=== PATIENT | female | born 1985 | race Caucasian/White ===

== ENCOUNTER 2017-10-08 07:57 | Emergency (ER) | payer MEDICAID ==
[~2017-10-08] VITALS: Ht 162.6 cm; Wt 60.0 kg
[2017-10-08 10:47] LABS: CHLORIDE 114 mEq/L (98-107)
[2017-10-08 10:50] LABS: BASOPHILS % 2.7 % (0.0-2.0); EOSINOPHILS % 3.1 % (0.0-5.0); HEMATOCRIT. 35.4 % (36.0-48.0); HEMOGLOBIN. 11.6 g/dL (12.0-16.0); MEAN CORPUSCULAR HEMOGLOBIN 26.1 pg (28.0-32.0); MEAN CORPUSCULAR VOLUME 79.8 fL (81.0-99.0); MEAN PLATELET VOLUME 7.8 fl (7.4-10.4); MONOCYTES % 6.2 % (2.0-8.0); PLATELET 306 x1000/uL (130-400); RED BLOOD CELL COUNT 4.44 mill/uL (4.2-5.4); RED CELL DISTRIBUTION WIDTH 16.8 % (11.6-14.6)
[2017-10-08 11:02] LABS: ETHANOL BLOOD 304 mg/dL
[2017-10-09] MEDS ORDERED: ONDANSETRON 4MG ODT PO ONE (03:45)
[2017-10-09 08:43] LABS: CLARITY URINE CLOUDY (CLEAR); COLOR URINE YELLOW (YELLOW); KETONES URINE 3+ (NEGATIVE); LEUKOCYTE ESTERASE URINE NEGATIVE (NEGATIVE); NITRITE URINE NEGATIVE (NEGATIVE); OCCULT BLOOD URINE NEGATIVE (NEGATIVE); PROTEIN URINE NEGATIVE (NEGATIVE); SPECIFIC GRAVITY URINE 1.023 (1.005-1.030); UROBILINOGEN URINE 0.2 E.U./dL (0.2-1.0)
[2017-10-09 09:24] LABS: *BARBITURATES SCREEN URINE NEGATIVE (NEGATIVE)
[2017-10-09 09:25] LABS: *AMPHETAMINES SCREEN URINE NEGATIVE (NEGATIVE); *BENZODIAZEPINES SCREEN URINE NEGATIVE (NEGATIVE); *COCAINE SCREEN URINE NEGATIVE (NEGATIVE); METHADONE URINE SCREEN NEGATIVE (NEGATIVE); OPIATES URINE SCREEN NEGATIVE (NEGATIVE)
[2017-10-09 09:26] LABS: CANNABINOID URINE SCREEN NEGATIVE (NEGATIVE); PHENCYCLIDINE URINE SCREEN NEGATIVE (NEGATIVE)
[2017-10-09 15:14] VITALS: BP 125/87
== END 2017-10-09 15:16 | disposition home or self-care (01) ==
LOC: ER 08:07
DX: F10.129 Alcohol abuse with intoxication, unspecified (principal); Y90.8 Blood alcohol level of 240 mg/100 ml or more
CPT/HCPCS: 36415; 80053; 80305; 81003; 85025; 87086; 99284; G0482; J7030; Q0162; Z7610

== ENCOUNTER 2017-10-09 19:23 | Emergency (ER) | payer MEDICAID ==
[~2017-10-09] VITALS: Ht 177.8 cm; Wt 84.0 kg
[2017-10-09] MEDS ORDERED: SODIUM CHLORIDE 0.9% 1,000 ML IV ONE (19:49)
[2017-10-09] MEDS ORDERED: ACTIVATED CHARCOAL 50 G/240 ML TUBE PO ONE (20:00)
[2017-10-09 20:23] LABS: BASOPHILS % 0.9 % (0.0-2.0); EOSINOPHILS % 1.4 % (0.0-5.0); HEMOGLOBIN. 11.3 g/dL (12.0-16.0); LYMPHOCYTES % 33.4 % (20.0-50.0); MEAN CORPUSCULAR HEMOGLOBIN 26.1 pg (28.0-32.0); MEAN CORPUSCULAR VOLUME 78.9 fL (81.0-99.0); MEAN PLATELET VOLUME 8.1 fl (7.4-10.4); MONOCYTES % 7.8 % (2.0-8.0); NEUTROPHILS % 56.5 % (40.0-76.0); PLATELET 308 x1000/uL (130-400); RED BLOOD CELL COUNT 4.31 mill/uL (4.2-5.4); RED CELL DISTRIBUTION WIDTH 16.8 % (11.6-14.6)
[2017-10-09 20:24] LABS: CHLORIDE 102 mEq/L (98-107)
[2017-10-09 20:29] LABS: HCG SCREEN NEGATIVE
[2017-10-09 20:53] LABS: ETHANOL BLOOD 323 mg/dL
[2017-10-09] MEDS ORDERED: POTASSIUM CHLORIDE 20MEQ TABLET SR PO ONE (21:30)
[2017-10-10] MEDS ORDERED: SODIUM CHLORIDE 0.9% 1,000 ML IV ONE (01:45)
[2017-10-10] MEDS: POTASSIUM BICARB/CIT ACID 25 MEQ TABLET.EFF PO SCH (02:59)
[2017-10-10 06:44] LABS: CLARITY URINE CLEAR (CLEAR); COLOR URINE YELLOW (YELLOW); KETONES URINE NEGATIVE (NEGATIVE); LEUKOCYTE ESTERASE URINE NEGATIVE (NEGATIVE); NITRITE URINE NEGATIVE (NEGATIVE); OCCULT BLOOD URINE NEGATIVE (NEGATIVE); PH URINE 5.5 (4.5-8.0); PROTEIN URINE NEGATIVE (NEGATIVE); UROBILINOGEN URINE 0.2 E.U./dL (0.2-1.0)
[2017-10-10 07:50] LABS: *AMPHETAMINES SCREEN URINE NEGATIVE (NEGATIVE)
[2017-10-10 07:52] LABS: *BARBITURATES SCREEN URINE NEGATIVE (NEGATIVE)
[2017-10-10 07:53] LABS: *BENZODIAZEPINES SCREEN URINE NEGATIVE (NEGATIVE)
[2017-10-10 07:54] LABS: *COCAINE SCREEN URINE NEGATIVE (NEGATIVE)
[2017-10-10 07:58] LABS: METHADONE URINE SCREEN NEGATIVE (NEGATIVE)
[2017-10-10 08:03] LABS: OPIATES URINE SCREEN NEGATIVE (NEGATIVE)
[2017-10-10 08:08] LABS: CANNABINOID URINE SCREEN NEGATIVE (NEGATIVE)
[2017-10-10 08:25] LABS: PHENCYCLIDINE URINE SCREEN NEGATIVE (NEGATIVE)
[2017-10-10 10:04] VITALS: BP 113/77
== END 2017-10-10 10:04 | disposition left against medical advice (07) ==
LOC: ER 19:37
DX: T43.022A Poisoning by tetracyclic antidepressants, intentional self-harm, initial encounter (principal); F10.229 Alcohol dependence with intoxication, unspecified; R45.851 Suicidal ideations; Y92.89 Other specified places as the place of occurrence of the external cause; Y90.8 Blood alcohol level of 240 mg/100 ml or more; Z79.899 Other long term (current) drug therapy
CPT/HCPCS: 36415; 80053; 80305; 80307; 80329; 81003; 82962; 84703; 85025; 93005; 96360; 96361; 99285; G0482; J7030; J7040; Z7610

== ENCOUNTER 2023-07-25 22:15 | Emergency (ER) | payer BC, MEDICAID ==
[~2023-07-25] VITALS: Ht 175.3 cm; Wt 77.0 kg
[2023-07-25 22:20] VITALS: TEMP 98.1; O2SAT 98
[2023-07-26 00:22] LABS: HEMATOCRIT. 32.2 % (36.0-48.0); HEMOGLOBIN. 9.5 g/dL (12.0-16.0); MEAN CORPUSCULAR HEMOGLOBIN 21.3 pg (28.0-32.0); MEAN CORPUSCULAR HGB CONC 29.4 g/dL (31.0-37.0); MEAN CORPUSCULAR VOLUME 72.5 fL (81.0-99.0); MEAN PLATELET VOLUME 8.6 fl (7.4-10.4); PLATELET 113 x1000/uL (130-400); RED BLOOD CELL COUNT 4.44 mill/uL (4.2-5.4); RED CELL DISTRIBUTION WIDTH 30.2 % (11.6-14.6); WHITE BLOOD COUNT 3.9 x1000/uL (4.5-11.0)
[2023-07-26 00:33] LABS: DIFFERENTIAL COMMENT 1
[2023-07-26 00:43] LABS: ALANINE AMINOTRANSFERASE 71 IU/L (10-49); ALBUMIN 3.8 g/dL (3.2-4.8); ASPARTATE AMINOTRANSFERASE 341 IU/L (<34); BILIRUBIN TOTAL 3.6 mg/dL (0.1-1.0); CALCIUM 8.1 mg/dL (8.7-10.4); CARBON DIOXIDE 25 mEq/L (21-32); CHLORIDE 105 mEq/L (98-107); CREATININE 0.5 mg/dL (0.6-1.0); GLUCOSE 103 mg/dL (70-105); POTASSIUM 3.1 mEq/L (3.5-5.1); PROTEIN TOTAL 7.1 g/dL (6.0-8.3); SODIUM 142 mEq/L (136-145)
[2023-07-26 00:45] LABS: UREA NITROGEN BLOOD < 5 mg/dL (9-23)
[2023-07-26 00:48] LABS: ETHANOL BLOOD 412 mg/dL (<10)
[2023-07-26 00:57] LABS: HCG SCREEN NEGATIVE
[2023-07-26] MEDS ORDERED: OCTREOTIDE 1,000 MCG in SODIUM CHLORIDE 0.9% 100 ML IV STA (01:04)
[2023-07-26] MEDS: ONDANSETRON HCL 4MG/2ML INJ IV STA (01:04)
[2023-07-26] MEDS: OCTREOTIDE ACETATE 50 MCG/ML 1ML IV STA (01:04)
[2023-07-26] MEDS: PANTOPRAZOLE SODIUM 40 MG/VIAL IV STA (01:04)
[2023-07-26] MEDS: SODIUM CHLORIDE 0.9% 1,000 ML IV ONE (01:15)
[2023-07-26] MEDS: MAGNESIUM 2 G PREMIX 50 ML IV ONE (01:15)
[2023-07-26] MEDS: FOLIC ACID 1 MG, THIAMINE HCL 100 MG, MVI, ADULT NO.1 10 ML in DEXTROSE 5% WATER 1,000 ML IV ONE (01:15)
[2023-07-26 01:55] LABS: LACTIC ACID 4.6 mmol/L (0.4-2.0)
[2023-07-26 02:01] LABS: INR 1.2; PARTIAL THROMBOPLASTIN TIME 28.2 sec (23.4-31.0); PROTHROMBIN TIME 12.9 sec (9.6-11.0)
[2023-07-26 04:55] LABS: PLATELET ESTIMATE SLIGHTLY DECREASED
[2023-07-26 04:56] LABS: HYPOCHROMASIA 1+; MICROCYTOSIS 1+
[2023-07-26] MEDS: OCTREOTIDE 1000MCG in SODIUM CHLORIDE 0.9% 100ML IV NR (06:17)
[2023-07-26 07:20] VITALS: BP 114/75; PULSE 109; RESP 17
== END 2023-07-26 07:28 | disposition left against medical advice (07) ==
LOC: ER 22:15 → CANBEDREQ 07-27 09:12
DX: K92.2 Gastrointestinal hemorrhage, unspecified (principal); T51.0X1A Toxic effect of ethanol, accidental (unintentional), initial encounter; F32.9 Major depressive disorder, single episode, unspecified; Y92.89 Other specified places as the place of occurrence of the external cause
CPT/HCPCS: 36415 ×2; 99291; 80053; 80320; 84703; 83605; 85025; 85610; 85730; 86850; 86900; 86901; 86920; 96368; 96365; 96366; 96375; J2354 ×2; J3490 ×2; J3475; J2405; C9113; J3411; J7070; J7050; J7030; Z7610; G0480